=== PATIENT | male | born 1985 | race Two or more races ===

== ENCOUNTER 2020-11-28 23:23 | Emergency (ER) | payer SELFPAY ==
[~2020-11-28] VITALS: Ht 167.6 cm; Wt 104.3 kg
[2020-11-29 00:33] VITALS: BP 130/91
[2020-11-29] MEDS ORDERED: AZITHROMYCIN 250 MG TAB PO ONE (02:45)
[2020-11-29] MEDS ORDERED: cefTRIAXone SODIUM 250 MG VL IM ONE (02:45)
== END 2020-11-29 04:57 | disposition home or self-care (01) ==
LOC: ER 23:30
DX: N48.1 Balanitis (principal); N39.0 Urinary tract infection, site not specified; E11.9 Type 2 diabetes mellitus without complications
CPT/HCPCS: 81002; 96372; 99283; J0696